=== PATIENT | male | born 1990 | race Caucasian/White ===

== ENCOUNTER 2019-07-29 02:45 | Emergency (ER) | payer OTHER ==
[~2019-07-29] VITALS: Ht 190.5 cm; Wt 181.9 kg
[2019-07-29 02:48] VITALS: BP 142/95
--- NOTE | 2019-07-29 02:48 | NUR ---
PT AMBULATED TO BED #3
--- NOTE | 2019-07-29 03:07 | NUR ---
28 Y/O M PRESENTS TO THE ED C/O LT ARM NUMBNESS AND TINGLING X 30 MINS AGO. PT ALSO STATES EXPERIENCING PALPITATIONS X 30 MINS AGO. 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 PT STATES ARRIVING FROM [place] A FEW HOURS AGO AND STARTED FEELING THE NUMBNESS AND TINGLING PRIOR TO GOING TO BED. DENIES SOB. NO RESPIRATORY DISTRESS NOTED. LUNG SOUNDS CLEAR. SYMMETRICAL CHEST RISE NOTED. 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 BED IN LOWEST POSTION, SIDE RAIL UP X1. PMH: DENIES ALLERGIES: NONE. Addendum: 07/29/19 at 0321 by [email or web address] 28 Y/O M PRESENTS TO THE ED C/O LT ARM NUMBNESS AND TINGLING X 30 MINS AGO. PT ALSO STATES EXPERIENCING PALPITATIONS X 30 MINS AGO. 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 PT STATES ARRIVING FROM [place] A FEW HOURS AGO AND STARTED FEELING THE NUMBNESS AND TINGLING PRIOR TO GOING TO BED. DENIES SOB. NO RESPIRATORY DISTRESS NOTED. LUNG SOUNDS CLEAR. SYMMETRICAL CHEST RISE NOTED. 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 BED IN LOWEST POSTION, SIDE RAIL UP X1. PMH: DENIES ALLERGIES: NONE
--- NOTE | 2019-07-29 03:30 | NUR ---
DR. BROWN AT BEDSIDE EVALUATING PT.
--- NOTE | 2019-07-29 03:40 | NUR ---
EKG PERFORMED AT BEDSIDE
--- NOTE | 2019-07-29 03:42 | NUR ---
PT AMBULATED RESTROOM, STEADY GAIT.
--- NOTE | 2019-07-29 03:45 | NUR ---
URINE COLLECTED AND SENT TO LAB.
[2019-07-29 03:59] LABS: BARBITURATE, URINE NEGATIVE ng/ml (NEG <=200); BENZODIAZEPINE, URINE NEGATIVE ng/mL (NEG <=200); CANNABINOID, URINE NEGATIVE ng/mL (NEG <=50); COCAINE, URINE NEGATIVE ng/mL (NEG <=300); OPIATE, URINE NEGATIVE ng/mL (NEG <=2000); PHENCYCLIDINE SCREEN,URINE NEGATIVE ng/mL (NEG <=25)
--- NOTE | 2019-07-29 04:01 | NUR ---
PT RESTING IN BED. NO RESPIRATORY DISTRESS NOTED. SYMMETRICAL CHEST RISE. NO NEW CONCERNS AT THIS TIME. BED IN LOWEST POSITION, SIDE RAIL UP X1. WILL CONTINUE TO MONITOR.
[2019-07-29 04:06] VITALS: BP 136/84
--- NOTE | 2019-07-29 04:07 | NUR ---
Patient discharged with v/s stable. Written and verbal after care instructions given and explained. Patient alert, oriented and verbalized understanding of instructions. Ambulatory with steady gait. All questions addressed prior to discharge. ID band removed. Patient advised to follow up with PMD. Rx of DIPHENHYDRAMINE HYDROCHLORIDE given. Patient educated on indication of medication including possible reaction and side effects. Opportunity to ask questions provided and answered.
== END 2019-07-29 04:06 | disposition home or self-care (01) ==
LOC: MED 02:45
DX: R20.2 Paresthesia of skin (principal)
CPT/HCPCS: 80305; 93005; 99284